=== PATIENT | female | born 1980 | race Caucasian/White ===

== ENCOUNTER 2017-11-23 11:46 | Emergency (ER) | payer OTHER ==
[~2017-11-23] VITALS: Ht 167.6 cm; Wt 102.1 kg
--- NOTE | 2017-11-23 11:46 | NUR ---
BROUGHT IN BY [facility], PLACED IN BED #2 AND TRIAGED. REPORT GIVEN TO TREASURE
--- NOTE | 2017-11-23 11:50 | NUR ---
Pt brought by self, A&Ox4, pt presents to ER with abdominal pain, N/V, states symptoms started after eating chicken fajitas at [employer] in the box, active vomiting noted, respirations even and unlabored, denies chest pain, denies bleeding.
[2017-11-23 11:52] VITALS: BP_SYST 146
[2017-11-23] MEDS ORDERED: NACL 0.9% 1,000 ML IV ONE (12:21)
[2017-11-23 12:27] LABS: BASOPHILS # (AUTO) 0.1 K/uL (0.0-0.2); BASOPHILS % (AUTO) 0.9 % (0.0-2.0); EOSINOPHILS # (AUTO) 0.3 K/uL (0.0-0.4); EOSINOPHILS % (AUTO) 4.5 % (0.0-4.0); HEMATOCRIT 29.7 % (36-48); HEMOGLOBIN 8.6 g/dL (12.0-16.0); LYMPHOCYTES # (AUTO) 2.1 K/uL (1.0-5.5); LYMPHOCYTES % (AUTO) 30.9 % (20.5-51.5); MEAN CORPUSCULAR HEMOGLOBIN 19 pg (27-31); MEAN CORPUSCULAR HGB CONC 29 % (32-36); MEAN CORPUSCULAR VOLUME 64 fL (79.0-98.0); MONOCYTES # (AUTO) 0.5 K/uL (0.0-1.0); MONOCYTES % (AUTO) 7.5 % (1.7-9.3); NEUTROPHILS # (AUTO) 3.6 K/uL (1.8-7.7); NEUTROPHILS % (AUTO) 56.2 % (40.0-70.0); PLATELET COUNT (AUTO) 443 K/uL (130-430); RED BLOOD CELL COUNT(AUTO) 4.62 MIL/uL (4.2-6.2); RED CELL DISTRIBUTION WIDTH 17.6 % (9.0-15.0); WHITE BLOOD COUNT (AUTO) 6.6 K/uL (4.8-10.8)
[2017-11-23] MEDS ORDERED: KETOROLAC TROMETHAMINE 15 MG VIAL IVP ONE (12:30)
[2017-11-23] MEDS ORDERED: METOCLOPRAMIDE HCL 10 MG/2 ML VIAL IVP ONE (12:30)
[2017-11-23] MEDS ORDERED: FAMOTIDINE PF 20 MG/2 ML VIAL IVP ONE (12:30)
[2017-11-23] MEDS ORDERED: ONDANSETRON HCL 4 MG/2 ML VIAL IVP ONE (12:30)
[2017-11-23 12:37] LABS: CALCIUM 8.8 mg/dL (8.4-11.0); CREATININE 0.57 mg/dL (0.55-1.30); POTASSIUM 3.6 mmol/L (3.5-5.1)
[2017-11-23 12:41] LABS: ALBUMIN 3.3 g/dL (3.4-4.8); TOTAL BILIRUBIN 0.7 mg/dL (0.0-1.0)
--- NOTE | 2017-11-23 12:50 | NUR ---
# 22 gauge angiocath placed to RAC. Use of asceptic technique. Opsite placed over site. Blood return noted. Flushed with 10 cc of normal saline. No evidence of infiltration noted. Patient tolerated well.
--- NOTE | 2017-11-23 13:14 | NUR ---
Pt medicated and tolerated well; will continue to monitor.
[2017-11-23 13:48] LABS: BILIRUBIN,URINE NEGATIVE (NEGATIVE); BLOOD, URINE 3+ (NEGATIVE); CLARITY/URINE HAZY (CLEAR); COLOR,URINE YELLOW (YELLOW); GLUCOSE,URINE NEGATIVE (NEGATIVE); KETONES,URINE NEGATIVE (NEGATIVE); LEUKOCYTE ESTERASE ,URINE TRACE (NEGATIVE); NITRITE, URINE NEGATIVE (NEGATIVE); PROTEIN URINE NEGATIVE (NEGATIVE); UROBILINOGEN,URINE 0.2 (0.2-1.0)
[2017-11-23 14:05] LABS: BACTERIA,URINE MODERATE /HPF (None Seen); WBC,URINE 0-3 /HPF (0-3)
--- NOTE | 2017-11-23 14:20 | NUR ---
Dr. Pena at bedside speaking with pt discussing lab and diagnostic results.
[2017-11-23 14:50] VITALS: BP_SYST 146
--- NOTE | 2017-11-23 14:50 | NUR ---
Patient given written and verbal discharge instructions and verbalizes understanding. ER MD discussed with patient the results and treatment provided. Patient in stable condition. ID arm band removed. IV catheter removed intact and dressing applied, no active bleeding. Rx of Pepcid & Reglan given. Patient educated on pain management and to follow up with PMD. Pain Scale 3/10. Opportunity for questions provided and answered. Medication side effect fact sheet provided.
== END 2017-11-23 14:50 | disposition home or self-care (01) ==
LOC: SED 11:46
DX: K29.70 Gastritis, unspecified, without bleeding (principal); R51 Headache; H57.10 Ocular pain, unspecified eye; Z88.6 Allergy status to analgesic agent; Z88.5 Allergy status to narcotic agent; Z98.890 Other specified postprocedural states
CPT/HCPCS: 36415; 80053; 81000; 83690; 85025; 87086; 96361; 96374; 96375; 99284; J1885; J2405; J2765; J3490; J7030